=== PATIENT | female | born 1960 | race Caucasian/White ===

== ENCOUNTER 2018-01-06 23:11 | Emergency (ER) | payer OTHER ==
[2018-01-07] MEDS: NS 1,000 ML IV (01:16)
[2018-01-07] MEDS: diphenhydrAMINE INJ 50MG/ML VIAL (J1200) IV (01:16)
[2018-01-07] MEDS: KETOROLAC 30 MG/ML VIAL (J1885) IV (01:18)
[2018-01-07] MEDS: METOCLOPRAMIDE INJ 10MG/2ML VIAL (J2765) IV (01:19)
[2018-01-07 01:29] LABS: BASO # 0.1 10^3/uL (0.0-0.2); BASO % 0.7 % (0.0-1.0); EOS # 0.2 10^3/uL (0.0-0.50); EOS % 2.5 % (0.0-3.0); HEMATOCRIT 43.7 % (36.0-47.0); HEMOGLOBIN 14.7 g/dl (12.0-15.5); IMMATURE GRANULOCYTE % 0.5 % (0-3.0); LYMPH # 1.5 10^3/uL (1.5-4.5); LYMPH % 17.6 % (24.0-44.0); MEAN CORPUSCULAR HEMOGLOBIN 30.9 pg (27.0-33.0); MEAN CORPUSCULAR HGB CONC 33.6 g/dl (32.0-36.5); MEAN CORPUSCULAR VOLUME 91.8 fl (80.0-96.0); MONO # 0.8 10^3/uL (0.0-0.8); MONO % 9.3 % (0.0-5.0); NEUTROPHILS # 5.9 10^3/uL (1.8-7.7); NEUTROPHILS % 69.4 % (36.0-66.0); PLATELET COUNT, AUTOMATED 316 10^3/uL (150-450); RED BLOOD COUNT 4.76 10^6/uL (4.00-5.40); RED CELL DISTRIBUTION WIDTH 13.1 % (11.5-14.5); WHITE BLOOD COUNT 8.5 10^3/uL (4.0-10.0)
[2018-01-07 02:03] LABS: ALBUMIN 3.4 GM/DL (3.2-5.2); ALBUMIN/GLOBULIN RATIO 1.13 (1.00-1.93); ALKALINE PHOSPHATASE 76 U/L (45-117); ALT/SGPT 23 U/L (12-78); ANION GAP 6 MEQ/L (8-16); AST/SGOT 21 U/L (7-37); BILIRUBIN,DIRECT 0.1 MG/DL (0.0-0.2); BILIRUBIN,TOTAL 0.3 MG/DL (0.2-1.0); BLOOD UREA NITROGEN 12 MG/DL (7-18); CALCIUM LEVEL 8.3 MG/DL (8.5-10.1); CARBON DIOXIDE LEVEL 26 MEQ/L (21-32); CHLORIDE LEVEL 110 MEQ/L (98-107); CREATININE FOR GFR 0.64 MG/DL (0.55-1.30); GLOMERULAR FILTRATION RATE > 60.0 (>51); GLUCOSE, FASTING 94 MG/DL (70-100); MAGNESIUM LEVEL 1.6 MG/DL (1.8-2.4); POTASSIUM SERUM 4.7 MEQ/L (3.5-5.1); SODIUM LEVEL 142 MEQ/L (136-145); TOTAL PROTEIN 6.4 GM/DL (6.4-8.2)
[2018-01-07 02:54] LABS: ERYTHROCYTE SEDIMENTATION RATE 3 mm/hr (0-30)
== END 2018-01-07 02:38 | disposition home or self-care (01) ==
LOC: M ED 23:11
DX: G44.029 Chronic cluster headache, not intractable (principal); E03.9 Hypothyroidism, unspecified; F17.210 Nicotine dependence, cigarettes, uncomplicated; Z88.5 Allergy status to narcotic agent; Z82.49 Family history of ischemic heart disease and other diseases of the circulatory system; Z79.890 Hormone replacement therapy; Z79.899 Other long term (current) drug therapy
CPT/HCPCS: J1200

== ENCOUNTER 2018-03-04 10:00 | Emergency (ER) | payer OTHER ==
[2018-03-04] MEDS: ONDANSETRON 4MG/2ML VIAL (J2405) IV (10:54)
[2018-03-04] MEDS: KETOROLAC 30 MG/ML VIAL (J1885) IV (10:54)
[2018-03-04] MEDS: NS 1,000 ML IV (10:54)
[2018-03-04 10:56] LABS: HEMATOCRIT 48.9 % (36.0-47.0); MEAN CORPUSCULAR HEMOGLOBIN 30.1 pg (27.0-33.0); MEAN CORPUSCULAR HGB CONC 32.7 g/dl (32.0-36.5); MEAN CORPUSCULAR VOLUME 92.1 fl (80.0-96.0); RED BLOOD COUNT 5.31 10^6/uL (4.00-5.40); RED CELL DISTRIBUTION WIDTH 14.5 % (11.5-14.5); WHITE BLOOD COUNT 3.7 10^3/uL (4.0-10.0)
[2018-03-04 11:23] LABS: INFLUENZA A AMPLIFICATION NEGATIVE (NEGATIVE); INFLUENZA B AMPLIFICATION NEGATIVE (NEGATIVE)
[2018-03-04 11:24] LABS: PLATELET COUNT, AUTOMATED 83 10^3/uL (150-450); POSITIVE MORPH POS FLAG
[2018-03-04 11:25] LABS: ADD MANUAL DIFFER YES; ALBUMIN 3.2 GM/DL (3.2-5.2); ALBUMIN/GLOBULIN RATIO 0.86 (1.00-1.93); ALKALINE PHOSPHATASE 71 U/L (45-117); ALT/SGPT 28 U/L (12-78); AMYLASE 47 U/L (25-115); ANION GAP 9 MEQ/L (8-16); AST/SGOT 46 U/L (7-37); BILIRUBIN,TOTAL 0.4 MG/DL (0.2-1.0); BLOOD UREA NITROGEN 15 MG/DL (7-18); CALCIUM LEVEL 8.4 MG/DL (8.5-10.1); CARBON DIOXIDE LEVEL 23 MEQ/L (21-32); CHLORIDE LEVEL 101 MEQ/L (98-107); CREATININE FOR GFR 0.73 MG/DL (0.55-1.30); DIFF SLIDE NUMBER 109; GLOMERULAR FILTRATION RATE > 60.0 (>51); GLUCOSE, FASTING 96 MG/DL (70-100); LIPASE 89 U/L (73-393); POTASSIUM SERUM 4.5 MEQ/L (3.5-5.1); SODIUM LEVEL 133 MEQ/L (136-145); TOTAL PROTEIN 6.9 GM/DL (6.4-8.2)
[2018-03-04 11:28] LABS: IMMATURE PLATELET FRACTION % 5.8 % (0.0-9.6)
[2018-03-04] MEDS ORDERED: ISOVUE-370 76% 100ML VIAL (Q9967) As Ordered (11:30)
[2018-03-04 11:33] LABS: ATYPICAL LYMPH 3 % (0-5); BANDS 14 % (< 11); LYMPHOCYTES 15 % (16-52); MONOCYTES 3 % (0-8); NEUTROPHILS 65 % (35-75)
[2018-03-04 11:34] LABS: ANISOCYTOSIS 1+; PLATELET ESTIMATE DECREASED (NORMAL)
[2018-03-04 11:43] LABS: KETONE, URINE AUTO RFX TRACE mg/dL (NEGATIVE); LEUKOCYTE ESTERASE UR AUTO RFX NEGATIVE (NEGATIVE); MUCUS, URINE RFX SMALL (NEGATIVE); NITRITE, URINE AUTO RFX NEGATIVE (NEGATIVE); RBC, URINE AUTO RFX 3 /HPF (0-3); SPECIFIC GRAVITY UR AUTO RFX 1.023 (1.002-1.035); SQUAM EPITHELIAL CELL UR AURFX 2 /HPF (0-6); WBC, URINE AUTO RFX 1 /HPF (0-3)
[2018-03-04] MEDS: AUGMENTIN 875 MG TAB PO (13:00)
== END 2018-03-04 13:22 | disposition home or self-care (01) ==
LOC: M ED 10:00
DX: J01.90 Acute sinusitis, unspecified (principal); R19.7 Diarrhea, unspecified; R10.30 Lower abdominal pain, unspecified; K57.32 Diverticulitis of large intestine without perforation or abscess without bleeding; M51.37 Other intervertebral disc degeneration, lumbosacral region; E03.9 Hypothyroidism, unspecified; Z88.5 Allergy status to narcotic agent; Z79.899 Other long term (current) drug therapy
CPT/HCPCS: J2405

== ENCOUNTER 2021-10-12 08:08 | Emergency (ER) | payer OTHER ==
[~2021-10-12] VITALS: Ht 160 cm; Wt 63.3 kg
[~2021-10-12 08:08] MED LIST: AMOX875T2 PO; AUGM875T28 PO; DICY10CA13 PO; HYDR200T3 PO; LEVO88TA3 PO; NEXI40CA PO; ONDA4TAB6 PO; VERA120C3 PO; ZOFR4TAB14 PO; ZOLO100T PO
[2021-10-12 08:10] VITALS: BP 143/98
[2021-10-12] MEDS ORDERED: CETI-24 (08:23)
[2021-10-12] MEDS ORDERED: CLIN-250 (08:23)
[2021-10-12] MEDS ORDERED: IBUP200C25 PO (08:23)
[2021-10-12] MEDS ORDERED: FLUT15.820 (08:23)
[2021-10-12] MEDS ORDERED: AZIT-12 PO (11:25)
[2021-10-12] MEDS ORDERED: ONDA4TAB6 PO (11:26)
== END 2021-10-12 11:35 | disposition home or self-care (01) ==
LOC: M ED 08:08
DX: L02.416 Cutaneous abscess of left lower limb (principal); S90.512A Abrasion, left ankle, initial encounter; W55.03XA Scratched by cat, initial encounter; Y92.009 Unspecified place in unspecified non-institutional (private) residence as the place of occurrence of the external cause; Y93.89 Activity, other specified; Y99.8 Other external cause status; E03.9 Hypothyroidism, unspecified; K21.9 Gastro-esophageal reflux disease without esophagitis; F17.210 Nicotine dependence, cigarettes, uncomplicated; Z79.2 Long term (current) use of antibiotics; Z79.51 Long term (current) use of inhaled steroids; Z79.890 Hormone replacement therapy; Z79.899 Other long term (current) drug therapy; Z88.5 Allergy status to narcotic agent; Z98.890 Other specified postprocedural states; Z86.69 Personal history of other diseases of the nervous system and sense organs